=== PATIENT | female | born 1970 | race Caucasian/White ===

== ENCOUNTER 2024-08-23 11:15 | Emergency (ER) | payer MEDICAID, SELFPAY ==
[2024-08-23 11:16] VITALS: BP 161/105; PULSE 66; RESP 14; TEMP 36.1; O2SAT 98; BMI 43.0
--- NOTE | 2024-08-23 11:52 | EDS_ITS ---
HPI History of Present Illness Chief Complaint: Hypertension Informant: patient and spouse/S.O. Narrative Narrative: 54-year-old female has a brain tumor, she was here at the [facility] to get a dose of a Avastin, and her blood pressure was elevated at 180/110. She states as a result they refused to give her the medication and advised that she come directly to the emergency department. She is asymptomatic. She has a mild headache, she states that is chronic daily symptom for her and it is no different than usual, and she denies any other new symptoms right now. No focal neurologic symptoms, no vision changes compared with yesterday. She states she has blood pressure medications including losartan and amlodipine, but one of her chronic issues with the brain mass is she often forgets things, and she and her admit that she has been forgetting to take her medications accidentally, including the above blood pressure medications for at least the last 3 days she thinks. [facility] Medical History (Updated 08/23/24 @ 11:[address] David Lee MD) HTN (hypertension) Brain tumor Allergy/AdvReac Type Severity Reaction Status Date / Time No Known Allergies Allergy Verified 08/23/24 11:17 ROS ROS ED Constitutional Constitutional ED: Denies chills or fever(s) Eyes Eyes: Denies change in vision or diplopia ENT ENT ED: Denies rhinorrhea or sore throat Cardiovascular Cardiovascular: Denies chest pain or palpitations Respiratory/Chest Respiratory/Chest: Denies cough or dyspnea Gastrointestinal Gastrointestinal: Denies abdominal pain, diarrhea, nausea or vomiting Genitourinary Genitourinary ED: Denies dysuria or hematuria Musculoskeletal Musculoskeletal: Denies back pain or neck pain Integumentary Denies abscess or rash Neurologic Neurologic: Reports headache(s); Denies paresthesias or weakness Psychiatric Psychiatric: Reports anxiety; Denies suicidal thoughts EXAM Physical Exam Const Vital Signs: 08/23/24 11:16 Temperature 96.9 F L Temperature Source Temporal Pulse Rate 66 Respiratory Rate 14 Blood Pressure 161/105 H Blood Pressure Mean 123 Pulse Ox 98 Oxygen Delivery Method Room Air Positive well nourished, well developed and obese General Appearance ED: well developed and NAD Nutritional Appearance: obese HEENT Reports moist mucous membranes HEENT Narrative: nonpitting facial edema, chronic per pt. no stridor or resp distress normocephalic and atraumatic Eyes PERRL and EOMs intact bilaterally Neck full ROM and supple Resp normal respiratory effort and clear to auscultation bilaterally Cardio regular rate, regular rhythm and no murmurs GI non-tender and non-distended Auscultation: normoactive bowel sounds Palpation: soft Back/Spine no CVA tenderness General Back: other FROM Extremity normal to inspection General Extremety ED: Negative for edema, pulses abnormal or tenderness General Extremity: Negative for edema or pulses abnormal Neuro oriented x3, CN's II-XII intact bilaterally and no sensory deficits noted Sensorium / Orientation: awake and alert Motor Exam: strength 5/5 throughout Skin no rashes or lesions noted and no wounds MDM MDM MDM Narrative Medical decision making narrative: Patient admits that she was anxious about her treatment when she was there which could certainly also have contributed to her elevated pressure. Here she is 161/105 and the rest of her vital signs are normal, and she has a normal neurologic exam and is asymptomatic as above. Given this, emergent treatment or workup is not indicated. She is reassured, advised to take her medications assume she gets home, and since they have a bit of a trip to travel home, I offered to give them initial doses of these medications today for her, and they were amenable to that. She is looking at the doses of medication so that we get the right doses. We discussed reasons to return to Discharge Plan Triage Chief Complaint: Hypertension ED Provider: David Lee Dx/Rx/DC Orders Clinical Impression: Accelerated hypertension Instructions: Understanding High Blood Pressure Referrals: Doctor,Your [Non-Staff] - (follow up sometime next week for BP recheck) Activity Restrictions/Additional Instructions: Go home and take your losartan and amlodipine as soon as you get home (tomorrow AM and/or as prescribed if given in ER) and try to remember to take your doses every day as prescribed. If you have a sudden onset severe headache, half of your body feels numb or weak, or any other new symptoms you are concerned about, return to the ER immediately. Print Language: Korean Disposition Disposition: Home, Self Care
--- NOTE | 2024-08-23 12:15 | ED.RN ---
pt has been forgetful with brain tumor has missed a few doses of meds. requesting to get dose here. pt called [facility] to verify rx dose. dr bergman to order
[2024-08-23 12:56] VITALS: BP 178/105; PULSE 82; RESP 16; TEMP 36.7; O2SAT 97
== END 2024-08-23 12:57 | disposition home or self-care (01) ==
LOC: ED 12:10
PROVIDERS: Emergency Provider Emergency Medicine; Visit Provider Emergency Medicine
DX: I10 Essential (primary) hypertension (principal); E66.9 Obesity, unspecified
CPT/HCPCS: 99283